=== PATIENT | female | born 1970 | race Caucasian/White ===

== ENCOUNTER 2025-06-25 07:47 | Inpatient (IN) | payer BC ==
[2025-06-25] VITALS (15 sets, daily range): BP systolic 87–119; BP diastolic 42–76; PULSE 58–105; RESP 14–19; TEMP 98.7; O2SAT 92–100
[~2025-06-25] VITALS: Ht 170.2 cm; Wt 54.5 kg
[2025-06-25 08:40] LABS: CREATININE 0.79 MG/DL (0.40-0.90); TOTAL CARBON DIOXIDE 25.3 MMOL/L (24-32); eCRCL 68 ML/MIN; eGFR 75 ML/MIN
[2025-06-25 09:06] LABS: URINE HCG NEGATIVE (NEG)
[2025-06-25 09:07] LABS: MEAN PLATELET VOLUME 8.6 FL (7.4-10.4); RED CELL DISTRIBUTION WIDTH 14.4 % (11.5-14.5)
[2025-06-25 09:12] LABS: LEUKOCYTE ESTERASE ,URINE NEGATIVE (Neg); NITRITES, URINE NEGATIVE (Neg); OCCULT BLOOD,URINE TRACE-INTACT (Neg)
[2025-06-25 09:21] LABS: UA COLLECTION TYPE CLN CATCH MIDSTREAM
[2025-06-25 09:22] LABS: MUCUS STRANDS NONE SEEN /LPF (Neg); SQUAMOUS EPITHELIAL CELL,UR NONE SEEN /LPF (FEW)
--- NOTE | 2025-06-25 09:23 | ELECTROCARDIOGRAPH REPORT ---
[facility] Test Date: 2025-06-25 Test Time: 09:20:45 Pat Name: BEA VALDIVIA Department: [facility] Patient ID: [facility]-[id number] Room: [place] [address] Gender: F Preforms Laminator: : 1970 Requested By: HA HUNG Order Number: [id number] Reading MD: Dr. Bulmaro Brandt Measurements Intervals [place] Rate: 79 P: 89 AL: 126 QRS: 87 QRSD: 59 T: -87 QT: 341 QTc: 391 Interpretive Statements Sinus rhythm Anteroseptal infarct, old Borderline repolarization abnormality Electronically Signed On 06-25-2025 18:17:[address] Bulmaro Brandt Please click the below link to view image of tracing.
--- NOTE | 2025-06-25 09:32 | RADIOLOGY REPORT ---
CLINICAL INFORMATION: Sepsis. TECHNIQUE: Single AP portable chest radiograph was obtained. COMPARISON: None FINDINGS: Lungs: No focal consolidation. Hyperaeration of the lungs, may be seen with emphysematous changes in the appropriate clinical setting. Cardiac: Heart size is within normal limits. Pulmonary vasculature: Unremarkable. Mediastinum/clari: Unremarkable. Bones: No acute osseous abnormality identified. Other: No other significant findings. IMPRESSION: 1. No evidence of acute disease in the chest. 2. Hyperaeration of the lungs, may be seen with emphysematous changes in the appropriate clinical setting. Correlate with clinical findings.
[2025-06-25] MEDS: normal saline 1000ML IV soln IVB ONE (09:46)
[2025-06-25] MEDS: ondansetron/PF 4mg/2ml inj IV ONE (09:47)
[2025-06-25] MEDS ORDERED: iohexol 300mg/ml 100ml inj. ONE (09:48)
[2025-06-25] MEDS: morphine 4 MG/ML inj SYRINge IV ONE ×2 (09:54→11:20)
--- NOTE | 2025-06-25 10:18 | Physician Documentation ---
History of Present Illness Chief Complaint: Abdominal Pain Stated Complaint: ABD PAIN Time Seen by MD: 09:08 OK to notify your PCP?: Yes Source: patient Mode of Arrival: POV Exam Limitations: no limitations HPI 54 y/o female with c/o RLQ abdominal pain started yesterday morning. Pain described as "pinching" in character and 8/10 in severity. States initially she thought it was "gas pains" but states since pain did not get better she came to ER. Has never had anything like this before. Took two Advil yesterday with some relief. +nausea without vomiting. H/o cholecystectomy. No urinary symptoms, no blood in urine, diarrhea, constipation. Medication Reconciliation Allergies: Coded Allergies: clindamycin (Verified Allergy, Unknown, 06/25/25) latex (Verified Allergy, Unknown, 06/25/25) Review of Systems All Other Systems at this time: Reviewed and Negative Physical Exam Vital Signs: Temperature: 98.4, Source: Temporal, Heart Rate: 84, Respiratory Rate: 16, BP: 104/66, Pulse Oximetry: 97, Weight: 54.550 Oxygen Flow Rate: 0 Physical Exam GENERAL: Alert, Mild distress due to abdominal pain. HEENT: NCAT, EOMI, PERRL, normal oropharynx, moist oral mucosa. NECK: Supple, trachea midline. CARDIAC: Regular rate and rhythm, no murmurs, rubs, or gallops. Equal distal pulses. No lower extremity edema, cap refill less than 2 seconds. RESPIRATORY: Equal breath sounds, clear to auscultation bilaterally, no respiratory distress. GASTROINTESTINAL: Non distended, soft, +RLQ ttp, No guarding or rebound. MUSCULOSKELETAL: Normal range of motion, nontender, no swelling. NEUROLOGICAL: Awake, alert, and oriented x 3. SKIN: Warm/dry, no pallor, no rash. PSYCH: Alert and appropriate. Affect congruent with mood. Speech is clear. Good eye contact. Progress Progress Note SPOKE TO DR. WELLS WHO IS AWARE OF THE PATIENT AND STATES HE PLANS TO TAKE TO OR TODAY. LAST PO INTAKE WAS 6AM THIS AM REPORTED TO BE APPROXIMATELY 4-6OUNCES OF WATER. HOSPITALIST PAGED FOR ADMISSION Results/Orders Reviewed/noted all lab results: Yes Results/Orders Orders - HA HUNG Ct Abdomen Pelvis (06/25/25 09:13) Culture Blood (06/25/25 09:14) Chest,Single View (06/25/25 09:14) Procalcitonin (06/25/25 09:14) Lacticsepsis (06/25/25 09:14) Completed Orders - HA HUNG Normal Saline 1000ml (0.9% Sodium Chlori (06/25/25 09:15) Morphine 2mg/Ml Inj. (Morphine Inj.) (06/25/25 09:15) Ondansetron Inj. (Zofran 4mg/2ml Vial) (06/25/25 09:15) Electrocardiogram (06/25/25 09:14) Chest,Single View (06/25/25 09:14) Morphine 4mg/Ml Inj. (Morphine Inj.) (06/25/25 09:20) Iohexol 300mg/Ml 100ml Inj. (Omnipaque-3 (06/25/25 09:48) Medications Received in ER Medications (Trade) Dose Ordered Sig/Jaycob Route PRN Reason Start Time Stop Time Status Last Admin Dose Admin (0.9% sodium chloride (NS) 1000ml IV soln) 1,000 ml ONCE ONCE IVB 06/25/25 09:15 06/25/25 09:16 DC 06/25/25 09:46 1,000 ML (Zofran 4mg/2ml vial) 4 mg ONCE ONCE IV 06/25/25 09:15 06/25/25 09:16 DC 06/25/25 09:47 4 MG (morphine inj.) 2 mg ONCE ONCE IV 06/25/25 09:20 06/25/25 09:21 DC 06/25/25 09:54 2 MG Vital Signs 06/25/25 06/25/25 06/25/25 06/25/25 07:52 08:15 09:00 09:30 Temp 98.4 Pulse 95 79 85 84 Resp 16 14 16 16 B/P (MAP) 91/48 92/59 (70) 110/64 (79) 104/66 (79) Pulse Ox 100 99 100 97 O2 Flow Rate 0 0 0 0 06/25/25 09:54 Resp 16 Laboratory Tests Test 06/25/25 08:08 06/25/25 08:31 White Blood Count 18.6 H Red Blood Count 4.20 Hemoglobin 12.7 Hematocrit 37.5 Mean Corpuscular Volume 89.2 Mean Corpuscular Hemoglobin 30.2 Mean Corpuscular Hemoglobin Concent 33.9 Red Cell Distribution Width 14.4 Platelet Count 282 Mean Platelet Volume 8.6 Neutrophils (%) (Auto) 92.6 H Lymphocytes (%) (Auto) 4.3 L Monocytes (%) (Auto) 3.0 Eosinophils (%) (Auto) 0 Basophils (%) (Auto) 0.1 Neutrophils # (Auto) 17.2 H Lymphocytes # (Auto) 0.8 L Monocytes # (Auto) 0.6 Eosinophils # (Auto) 0.0 Basophils # (Auto) 0.0 CBC Comment Sodium Level 140 Potassium Level 3.9 Chloride Level 104 Carbon Dioxide Level 25.3 Anion Gap 11 Blood Urea Nitrogen 12 Creatinine 0.79 Estimated GFR/1.73 m2 75 BUN/Creatinine Ratio 15.2 Glucose Level 169 H Calcium Level 8.9 Total Bilirubin 0.6 Aspartate Amino Transf (AST/SGOT) 18 Alanine Aminotransferase (ALT/SGPT) 19 Alkaline Phosphatase 57 Total Protein 7.3 Albumin 3.6 Globulin 3.7 Albumin/Globulin Ratio 1.0 L Lipase 25 Chemistry Comments Urine Specimen Description Cln catch midstream Urine Color Yellow Urine Clarity Clear Urine pH 6.5 Urine Specific [place] 1.020 Urine Protein Negative Urine Glucose (UA) Negative Urine Ketones 15 H Urine Occult Blood Trace-intact Urine Nitrite Negative Urine Bilirubin Negative Urine Urobilinogen 0.2 Urine Leukocyte Esterase Negative Urine RBC 3-10 Urine WBC 0-4 Urine Squamous Epithelial Cells None seen Urine Bacteria Few Urine Mucus None seen Urine Culture Indicated Not ind Volume Urine Centrifuged 10 ml Urine HCG, Qualitative Negative Urine Comment Medical Decision Making Findings History: RLQ ABDOMINAL PAIN Comparison Study: None Technique: Multidetector spiral CT of the abdomen was performed from lung bases to pubic symphysis. Axial imaging was performed with intravenous contrast following the uneventful administration of 100 ml Omnipaque 300. Coronal and sagittal multiplanar reformats were obtained from the axial data set by the technologist. Radiation Dose : 1. Abdomen/Pelvis: CTDIvol 8.3 mGy, DLP 42.9 mGy*cm. Findings: Lung Bases: Lung bases are clear. Visualized portions of the heart and pericardium are unremarkable. Liver: The liver is normal in size. No focal lesions. Gallbladder and Biliary Tree: The gallbladder is surgically absent. No intrahepatic or extrahepatic biliary ductal dilatation. Spleen: Unremarkable Pancreas: The pancreas enhances normally and there are no focal lesions. The main pancreatic duct is not dilated Adrenal Glands: Unremarkable Kidneys: Kidneys enhance symmetrically. No calculi or hydronephrosis. GI tract: The stomach is grossly normal in appearance. No evidence of small bowel wall thickening or abnormal dilatation to suggest bowel obstruction. The c olon is unremarkable. The appendix is dilated measuring 1.3 cm and fluid-filled with periappendiceal fat stranding and mesenteric edema. Peritoneum/mesentery/retroperitoneum. No evidence of free intraperitoneal air. No ascites. No evidence of suspicious lymphadenopathy. Abdominal Wall: Unremarkable. Vasculature: Abdominal aorta and main branches are unremarkable. Normal vascular enhancement. Urinary Bladder: Grossly unremarkable for degree of distention. Pelvic Organs: Unremarkable Musculoskeletal: No aggressive focal bony lesions, acute fractures or dislocation. IMPRESSION: 1. Acute appendicitis. No fluid collection or perforation. 2. Cholecystectomy. Differential Dx:Considerations: Include: AAA, Aortic dissection, Appendicitis, Bowel obstruction, Constipation, Diverticular disease, Gastritis/PUD, Gastroenteritis, GI hemorrhage, Hernia, Hepatitis, Inflammatory BD, Ischemic bowel, Ovarian cyst/torsion, Pancreatitis, PID, Urinary obstruction, Urinary tract infection, Urolithiasis; Unlikely: Cholangitis, Cholelithasis, Esophageal rupture, Esophagitis, Trauma, intraabdominal Departure Time of Disposition: 11:54 Admitted to Inpatient Unit: to hospitalist, to surgeon Impression: Primary Impression: Acute appendicitis Qualified Codes: K35.30 - Acute appendicitis with localized peritonitis, without perforation or gangrene Additional Impression: Abdominal pain Qualified Codes: R10.31 - Right lower quadrant pain Condition: Fair Referrals: NO PRIMARY CARE PROVIDER (PCP) Education Educated: Patient, Family Educated regarding: diagnosis, treatment, need for follow up Signature Scribe Signature: x Attestation: HA Avery Jun 25, 2025 10:18
--- NOTE | 2025-06-25 11:32 | RADIOLOGY REPORT ---
Exam: CT CT ABDOMEN PELVIS W/ IV CONTRAST History: RLQ ABDOMINAL PAIN Comparison Study: None Technique: Multidetector spiral CT of the abdomen was performed from lung bases to pubic symphysis. Axial imaging was performed with intravenous contrast following the uneventful administration of 100 ml Omnipaque 300. Coronal and sagittal multiplanar reformats were obtained from the axial data set by the technologist. Radiation Dose : 1. Abdomen/Pelvis: CTDIvol 8.3 mGy, DLP 42.9 mGy*cm. Findings: Lung Bases: Lung bases are clear. Visualized portions of the heart and pericardium are unremarkable. Liver: The liver is normal in size. No focal lesions. Gallbladder and Biliary Tree: The gallbladder is surgically absent. No intrahepatic or extrahepatic biliary ductal dilatation. Spleen: Unremarkable Pancreas: The pancreas enhances normally and there are no focal lesions. The main pancreatic duct is not dilated Adrenal Glands: Unremarkable Kidneys: Kidneys enhance symmetrically. No calculi or hydronephrosis. GI tract: The stomach is grossly normal in appearance. No evidence of small bowel wall thickening or abnormal dilatation to suggest bowel obstruction. The colon is unremarkable. The appendix is dilated measuring 1.3 cm and fluid-filled with periappendiceal fat stranding and mesenteric edema. Peritoneum/mesentery/retroperitoneum. No evidence of free intraperitoneal air. No ascites. No evidence of suspicious lymphadenopathy. Abdominal Wall: Unremarkable. Vasculature: Abdominal aorta and main branches are unremarkable. Normal vascular enhancement. Urinary Bladder: Grossly unremarkable for degree of distention. Pelvic Organs: Unremarkable Musculoskeletal: No aggressive focal bony lesions, acute fractures or dislocation. IMPRESSION: 1. Acute appendicitis. No fluid collection or perforation. 2. Cholecystectomy.
[2025-06-25] MEDS ORDERED: magnesium sulf-water 2g/50mL 50 ML IV PRN (12:15)
[2025-06-25] MEDS ORDERED: HYDROcodone/acetaminophen 10/325mg tab PO PRN ×2 (12:15→15:55)
[2025-06-25] MEDS ORDERED: potassium Cl 20 mEq SR tablet PO PRN ×2 (12:15)
[2025-06-25] MEDS ORDERED: HYDROcodone/acetaminophen 5mg/325mg tablet PO PRN ×2 (12:15→15:55)
[2025-06-25] MEDS ORDERED: magnesium hydroxide 30ml (MOM) UD suspension PO PRN (12:15)
[2025-06-25] MEDS ORDERED: potassium Cl 40MEQ/1/2NS 520ml 520 ML IV PRN (12:15)
[2025-06-25] MEDS ORDERED: mag hydrox/Alum hydrox/simeth 30ml oral suspension PO PRN (12:15)
[2025-06-25] MEDS ORDERED: ondansetron/PF 4mg/2ml inj IV PRN ×3 (12:15→15:55)
[2025-06-25] MEDS ORDERED: magnesium sulf-water 4G/100mL 100 ML IV PRN (12:15)
[2025-06-25] MEDS ORDERED: ringers solution, lacted 1,000 ML IV SCH (12:30)
[2025-06-25] MEDS ORDERED: HYDROmorphone/PF 0.2 MG/ML SYRINGE IV PRN ×2 (12:30)
[2025-06-25] MEDS ORDERED: enalaprilat 1.25mg/ml 2ml vial IV PRN (12:30)
[2025-06-25] MEDS ORDERED: fentaNYL/PF 50MCG/1 ML 2ML syringe IV PRN ×2 (12:30)
[2025-06-25] MEDS ORDERED: labetalol 20mg/4ml (5mg/ml) syringe IV PRN (12:30)
[2025-06-25] MEDS ORDERED: morphine 4 MG/ML inj SYRINge IV PRN ×4 (12:30→16:27)
--- NOTE | 2025-06-25 12:33 | CONSULTATION REPORT ---
History of Present Illness Providers to CC CC: WOLF WELLS MD ~ Reason for Admit\Admit Dx: Acute appendicitis Refering MD: Keena Becker PA-C History of Present Illness Otherwise healthy 54-year-old woman presents to the emergency room with a 24-30 hours of abdominal pain, distention, nausea. Pain progressively increased in severity and now tends to be isolated to the right lower quadrant. CT scan shows acute non perforated appendicitis with the appendicoliths. Patient continues to have fairly significant right lower quadrant abdominal pain. She states she has a history of similar episodes over the past 10 years, however, never had diagnosis of appendicitis. Reports only cholecystectomy. Allergies: Coded Allergies: clindamycin (Verified Allergy, Unknown, 06/25/25) latex (Verified Allergy, Unknown, 06/25/25) Past Medical History Medical History Comment None Past Surgical History Surgical History Comment Laparoscopic cholecystectomy Past Family History Family History Comment Noncontributory Past Social History Social History Comment Not applicable Health Maintenance Health Maintenance Not applicable Physical Exam Last Vital Signs Recorded: RN Vital Signs have been reviewed: Yes, Temperature: 98.4, Source: Temporal, Heart Rate: 85, Respiratory Rate: 14, BP: 100/56, Pulse Oximetry: 98, Weight: 54.550 General Appearance: alert, WD/WN, thin EENT: PERRL/EOMI; No: scleral icterus (R), scleral icterus (L) Neck: normal inspection, supple Respiratory: lungs clear Chest: no accessory muscle use Cardiovascular: regular rate, rhythm Gastrointestinal Abdomen is softly distended Significant right lower quadrant and right suprapubic tenderness to palpation with tenderness to percussion Rovsing sign negative No palpable masses Partially reducible umbilical hernia Rectal: deferred Back: normal inspection, no CVA tenderness Extremities: normal range of motion, non-tender, no edema Neurologic: oriented x4 Psychiatric: normal mood/affect; No: anxiety Skin: normal color Lymphatic: no adenopathy Review of Systems ROS ROS Comments: Reviewed and negative with the exception of those found in the history of present illness Results Diagram Lab Result Diagram: 06/25/25 0808 06/25/25 08 Assessment/Plan Problems/Diagnosis: (1) Umbilical hernia (2) Acute appendicitis Additional Plan The risks, benefits, and alternatives to a laparoscopic possible open appendectomy with a umbilical hernia repair were discussed with the patient. Risks include, but are not limited to, bleeding, infection, injury to intra- abdominal structures, leakage from the intestine and the need for additional surgery. Patient verbalized understanding and wishes to proceed with surgery. We will do so ALIYA Problem Qualifiers (1) Acute appendicitis: Qualified Codes: K35.30 - Acute appendicitis with localized peritonitis, without perforation or gangrene WOLF WELLS MD Jun 25, 2025 12:33
--- NOTE | 2025-06-25 12:46 | HISTORY AND PHYSICAL ---
History & Physical Providers to ~ History of Present Illness Reason for Admit\Complaint: Acute appendicitis History of Present Illness Cassidy Humphries is a 54-year-old female with a past medical history of prediabetes who presented with chief complaints of acute onset severe right lower quadrant and left lower quadrant abdominal pain with associated symptoms of nausea x 2 days. Patient denies prior IL/CAD, CVA, cardiac arrhythmia, DVT/PE, or GIB. Patient denies chest pain, palpitations, shortness of breath, abdominal pain, v/d, fever, chills. Patient is to be admitted for further workups and treatment. Allergies: Coded Allergies: clindamycin (Verified Allergy, Unknown, 06/25/25) latex (Verified Allergy, Unknown, 06/25/25) Past Medical History Past Medical History Prediabetes Past Surgical History Surgical History Comment Cholecystectomy Past Social History Social History Comment Alcohol: 1 glass of wine daily Tobacco: Denies, never Illicit drug use: Denies Living situation: Lives at home with spouse ROS ROS Other than positives in HPI, all 14 review of systems are negative Exam Vitals: Vital Signs Date Time Temp Pulse Resp B/P (MAP) Pulse Ox O2 Delivery O2 Flow Rate FiO2 06/25/25 11:36 85 100/56 (71) 98 0 06/25/25 11:20 14 06/25/25 07:52 98.4 General: Generalized weakness, A&Ox 3, NAD HEENT: Normocephalic, PERRLA Neck: Supple, trachea midline, no JVD Chest: Clear to auscultation bilaterally Cardiovascular: RRR, S1&S2 Abdomen: Positive McBurney's point tenderness, positive Rovsing's sign, positive Obturator sign, negative rebound tenderness Extremities: No cyanosis/clubbing/or edema Central Nervous System: CN II-XII intact, no focal deficits Musculoskeletal: No paraspinal muscle tenderness, no muscle spasm Skin: Warm and intact Diagnostic Data Last Recorded Lab Results: 06/25/25 0808 06/25/25 0808 Additional Plan Assessment & Plan Acute appendicitis, complicated Umbilical hernia s/p appendectomy and umbilical hernia repair (06/25/25) -CT shows acute appendicitis, vss, wbc 18, lactic acid 1.4, procal neg, Dr. Ferguson consulted in ED -NPO, Zosyn, IVF, OR today with findings of 3 cm fascial defect on the superior margin of the umbilicus with the herniated and incarcerated omentum and preperitoneal fat & gangrenous appendicitis with no clear evidence of rupture or abscess formation Prediabetes s/p cholecystectomy DVT/VTE Prophylaxis: heparin Code Status: Full Code I spent a total of 35 minutes discussing Advanced Care Planning measures with the patient. Advance care planning: Discussed with patient the importance of advance care planning in case of emergent situation. We discussed various resuscitative measures/ ACP with the patient at the time of admission. Patient voiced understanding and patient has decided on a full code status. Date of Service: Jun 25, 2025 Billing Provider: JONA COPPOLA Common Visit Codes: 71268-[id number] INP/OBS CARE (HIGH) Secondary Visit Codes: 41451-[id number] CARE PLAN 30 MINUTES JONA COPPOLA Jun 25, 2025 12:46
[2025-06-25] MEDS: ringers solution, lacted 1,000 ML IV SCH (12:52)
[2025-06-25] MEDS: ringers solution, lacted 1,000 ML IV ONE (12:53)
[2025-06-25] MEDS: piperacillin/tazo 3.375gm/50ml 50 ML IV SCH (12:53)
[2025-06-25] MEDS ORDERED: BUPIVAcaine 2.5mg/ml inj 50ml vial (contains preservative) ONE (14:16)
[2025-06-25] MEDS ORDERED: LIDOcaine 1% 30ml preserv. free vial ONE (14:16)
[2025-06-25] MEDS ORDERED: fentaNYL/PF 50MCG/1 ML 2ML syringe ONE (14:27)
[2025-06-25] MEDS ORDERED: midazolam 1 mg/ML 2ml injection ONE (14:27)
[2025-06-25] MEDS ORDERED: rocuronium 10mg/ml inj IV ONE (14:28)
[2025-06-25] MEDS: BUPIVAcaine 0.25% w/Epi /PF 30ml vial IJ ONE (14:51)
[2025-06-25] MEDS: LIDOcaine 1% 30ml preserv. free vial IJ ONE (14:51)
[2025-06-25] MEDS ORDERED: dexamethasone sod phosphate 4mg/ml inj. ONE (14:52)
[2025-06-25] MEDS ORDERED: propofol 10mg/ml 20ml vial IV ONE (14:52)
[2025-06-25] MEDS ORDERED: glycopyrrolate 0.2mg/ml inj ONE (14:52)
[2025-06-25] MEDS ORDERED: morphine 4 MG/ML inj SYRINge ONE (15:27)
[2025-06-25] MEDS ORDERED: ondansetron/PF 4mg/2ml inj ONE (15:27)
[2025-06-25] MEDS ORDERED: acetaminophen 1,000mg/100ml IV 100 ML IV ONE (15:29)
[2025-06-25] MEDS ORDERED: PCA WASTE DOCUMENTATION 1 MG ML MC SCH (15:55)
[2025-06-25] MEDS ORDERED: piperacillin/tazo 3.375gm/50ml 50 ML IV SCH (16:00)
--- NOTE | 2025-06-25 16:01 | OPERATIVE REPORT ---
Operative Report Providers to CC CC: MADI WELLS MD ~ Date of Procedure: Jun 25, 2025 Pre-Operative Diagnosis: Acute appendicitis, umbilical hernia Post-Operative Diagnosis Gangrenous appendicitis 3 cm umbilical hernia Procedure Performed 3 cm umbilical hernia repair Laparoscopic appendectomy Surgeon: Madi Wells MD FACS Steam Engineer None Anesthesiologist: Kevan Reese Type of Anesthesia: General Findings: 3 cm fascial defect on the superior margin of the umbilicus with the herniated and incarcerated omentum and preperitoneal fat Gangrenous appendicitis with no clear evidence of rupture or abscess formation Wound class III Complications None Prosthetics\Implants used: None Estimated Blood Loss: Less than 5 cc Specimen Removed: Appendix Umbilical hernia sac excised and discarded Description of Procedure: Patient was brought to the operating room and identified by the nursing staff and the attending physician. Patient was placed supine and general anesthesia was induced. Preoperative antibiotics had already been given. Abdomen was prepped and draped in the standard sterile fashion. Over a visible umbilical hernia, a curvilinear incision was made along the superior margin of the umbilicus and deepened down through subcutaneous tissues. Almost immediately, a moderate-sized hernia sac was encountered. This was densely adherent to the underside of the dermis hand was immediately opened. It was found to contain both preperitoneal and omental fat. This was incarcerated. Contents and hernia sac were mobilized away from the soft tissue and subcutaneous tissues down to the level of the fascia excess hernia sac and preperitoneal fat was excised and discarded. Fascial edges were freshened, revealing a 3 cm fascial defect. This was used for Bear port after stay sutures were placed. Abdomen was insufflated without incident. Laparoscope was inserted and the abdomen was surveyed. There was murky fluid in the right lower quadrant but the appendix was obscured by omentum. 5 mm laparoscopic ports were placed in the suprapubic and left lower quadrant under laparoscopic visualization. Patient was placed in Trendelenburg position with the right side up. Omentum was swept away from the terminal ileum and cecum, revealing a distended and gangrenous appearing appendix. It was purple to black in color but there was no clear evidence of perforation. Murky fluid was suctioned from the periappendiceal space as well as the pelvis. Again, this did not appear to be purulent in nature. There was some localized peritonitis. A window was created through the appendiceal mesentery and the appendix was divided through its base with a laparoscopic linear cutting stapler. The base appeared normal. The mesentery to the appendix was then divided with a subsequent vascular load with a linear cutting stapler. Appendix was then placed in a laparoscopic retrieval bag. Hemostasis along the staple lines was confirmed. Area was irrigated and suctioned. Instruments were removed and the umbilical port was removed with the specimen in its retrieval bag. Specimen was passed off the field. 3 cm umbilical hernia defect was closed in layers with a combination of 0 Ethibond and 0 Vicryl suture. Skin was closed at all sites with 4-0 Monocryl sutures in a subcuticular fashion and sterile dressings applied. Patient was awakened and taken to the postanesthesia care unit to be cared for by the most amazing nurse Trinity. Counts repoted as correct: Yes MADI WELLS MD Jun 25, 2025 16:01
[2025-06-25] MEDS: K and/or MAG REPLACEMENT MC SCH (20:00)
[2025-06-25] MEDS: docusate sod 100mg capsule PO SCH (20:28)
[2025-06-25] MEDS: normal saline 500ml IV soln 500 ML IV SCH (22:48)
[2025-06-26] VITALS (8 sets, daily range): BP systolic 88–119; BP diastolic 43–69; PULSE 60–83; RESP 16–20; TEMP 97.5–99; O2SAT 96–99
[2025-06-26] MEDS: midodrine 5mg tablet PO PRN (03:17)
[2025-06-26] MEDS: normal saline 500ml IV soln 500 ML IV ONE (03:30)
[2025-06-26] MEDS: piperacillin/tazo 3.375gm/50ml 50 ML IV SCH (04:00)
[2025-06-26 06:16] LABS: CREATININE 0.79 MG/DL (0.40-0.90); TOTAL CARBON DIOXIDE 25.4 MMOL/L (24-32); eCRCL 68 ML/MIN; eGFR 75 ML/MIN
[2025-06-26 06:19] LABS: MEAN PLATELET VOLUME 9.0 FL (7.4-10.4); RED CELL DISTRIBUTION WIDTH 14.4 % (11.5-14.5)
[2025-06-26] MEDS: midodrine 5mg tablet PO SCH (08:31)
[2025-06-26] MEDS: enoxaparin 40mg/0.4ml syringe SQ SCH (08:32)
--- NOTE | 2025-06-26 11:24 | PROGRESS NOTE ---
Daily Progress Note Providers to CC ~ Antibiotic Timeout Antibiotic Ordered?: Yes Subjective Note No acute events overnight. Patient examined at bedside. No new complaints, not in acute distress. Patient denies chest pain, sob, palpitations, abdominal pain, n/v/d. s/p laparoscopic appendectomy and umbilical hernia repair. Vss, labs unremarkable. Objective Vital Signs Date Time Temp Pulse Resp B/P (MAP) Pulse Ox O2 Delivery O2 Flow Rate FiO2 06/26/25 10:41 98.3 60 18 105/51 (69) 99 Room Air 06/26/25 05:38 0 21 Result Diagram: 06/26/2552206/26/25522 Physical Exam General: Generalized weakness, A&Ox 3, NAD HEENT: Normocephalic, PERRLA Neck: Supple, trachea midline, no JVD Chest: Clear to auscultation bilaterally Cardiovascular: RRR, S1&S2 GI: Soft and nontender Extremities: No cyanosis/clubbing/or edema DIRECTOR OF AUTOMATION: CN II-XII intact, no focal deficits Musculoskeletal: No paraspinal muscle tenderness, no muscle spasm Skin: Laparoscopic incisions in the left quadrant abdomen and umbilical w/o s/s of infection Problem\Assessment\Plan Assessment & Plan Acute appendicitis, complicated Umbilical hernia s/p appendectomy and umbilical hernia repair (06/25/25) -CT shows acute appendicitis, vss, wbc 18, lactic acid 1.4, procal neg, Dr. Ferguson consulted in ED -NPO, Zosyn, IVF, OR today with findings of 3 cm fascial defect on the superior margin of the umbilicus with the herniated and incarcerated omentum and preperitoneal fat & gangrenous appendicitis with no clear evidence of rupture or abscess formation 06/26: continue abx Prediabetes s/p cholecystectomy DVT/VTE Prophylaxis: heparin Code Status: Full Code Date of Service: Jun 26, 2025 Billing Provider: JONA COPPOLA Common Visit Codes: [id number] INP/OBS CARE(HIGH) JONA COPPOLA Jun 26, 2025 11:24
--- NOTE | 2025-06-26 20:45 | PROGRESS NOTE ---
Progress Note Dictate Providers to CC ~ Progress Note: Subsequent surgical care on a 54-year-old woman who is postoperative day 1, status post laparoscopic appendectomy for gangrenous appendicitis Persistent leukocytosis Passing some flatus at this point No nausea or vomiting Afebrile Continue IV antibiotics Okay to advance diet as tolerated Anticipate discharge in the next 24-48 hours Antibiotic Ordered?: Yes Objective Vitals Vital Signs Date Time Temp Pulse Resp B/P (MAP) Pulse Ox O2 Delivery O2 Flow Rate FiO2 06/26/25 10:41 98.3 60 18 105/51 (69) 99 Room Air 06/26/25 05:38 0 21 Lab Results: 06/26/25 0523 06/26/25 0523 Problem\Assessment\Plan Problems/Diagnosis: (1) Umbilical hernia (2) Acute appendicitis Problem Qualifiers (1) Acute appendicitis: Qualified Codes: K35.30 - Acute appendicitis with localized peritonitis, without perforation or gangrene WOLF WELLS MD Jun 26, 2025 20:44
[2025-06-27 04:52] LABS: MEAN PLATELET VOLUME 8.2 FL (7.4-10.4); RED CELL DISTRIBUTION WIDTH 14.6 % (11.5-14.5)
[2025-06-27 05:05] LABS: CREATININE 0.88 MG/DL (0.40-0.90); TOTAL CARBON DIOXIDE 26.2 MMOL/L (24-32); eCRCL 61 ML/MIN; eGFR 66 ML/MIN
[2025-06-27 06:00] VITALS: BP 101/56; PULSE 89; RESP 16; TEMP 99.5; O2SAT 98
[2025-06-27 08:00] VITALS: RESP 16; O2SAT 98
[2025-06-27 10:00] VITALS: BP 104/52; PULSE 87; RESP 16; TEMP 98.9; O2SAT 98
--- NOTE | 2025-06-27 11:14 | PATHOLOGY REPORT ---
[facility] [address] [place] [address] SURGICAL PATHOLOGY REPORT CaseNumber: [id number] Surgeon:Madi Ferguson M.D. CLINICAL INFORMATION CLINICAL INFORMATION: Acute appendicits, abd pain. DIAGNOSIS DIAGNOSIS: APPENDIX, ROBOTIC ASSISTED LAPAROSCOPIC APPENDEC - PROMINENT ACUTE APPENDICITIS - GROSS FEATURES CONSISTENT WITH PERFORATION - NO DYSPLASTIC OR NEOPLASTIC FEATURES MICROSCOPIC DESCRIPTION MICROSCOPIC DESCRIPTION: Performed. GROSS DESCRIPTION GROSS DESCRIPTION: Received in a container of formalin labeled with the patient's name, number, and "Appendix" is a perforated uniform caliber vermiform appendix which measures 8 cm long by 0.9 cm in diameter. The serosa is congested with areas of indurated fibrinopurulent exudate and 2.5 cm from the distal a through and through perforation is identified. There is approximately 1.5 cm of attached periappendiceal fat. Sectioning reveals a dilated lumen which contains stool but no fecalith. Sections are submitted as follows:A1) Area of perforationA2)Website Developer The time at which the specimen was removed was 1520. The time at which the specimen was placed in formalin was 1525. Electronically signed by: Modesto Chowdary M.D. 06/27/2025 10:49:00 AM
--- NOTE | 2025-06-27 15:55 | PROGRESS NOTE ---
Daily Progress Note Providers to CC Feels better today, no complaint, pain well controlled, patient discharged by Dr. Ferguson ~ Central Line/PICC still needed: No Tomlinson-Non Protocol Tomlinson Indications Met/Not Met: F/C Indications Not Met Antibiotic Timeout Antibiotic Ordered?: No MRSA Education MRSA Education Provided to pt: No Subjective As above Objective Vital Signs Date Time Temp Pulse Resp B/P (MAP) Pulse Ox O2 Delivery O2 Flow Rate FiO2 06/27/25 10:00 98.9 87 16 104/52 (69) 98 Room Air 06/26/25 05:38 0 21 Vital signs, stable ,afebrile. Pulse Oximetry reflects adequate oxygenation. General: well developed, well nourished. Awake , alert, and oriented x4, resting comfortably in the bed, in no acute distress . Skin: Warm, dry, no pallor, no rash or petechiae. HEENT: Atraumatic, normocephalic, EOMI, anicteric sclera B; pink conjunctiva; PERRLA, normal oropharynx, moist oral and nasal mucosa. Tympanic membrane , nose , throat clear. Neck: Trachea midline. Supple, full range of motion, no JVD, bruit , hepatojugular reflex , lymphadenopathy or masses, or other lesions Cardiac: Regular rhythm, regular rate no murmurs, rubs, or gallops. Normal S1 and S2, no S3 noticed. PMI is normal. Respiratory: Equal breath sounds bilaterally, no tachypnea; lungs clear to auscultation bilaterally, no wheezing ,rub or rales, or crackles. Chest wall is symmetric and without deformity. No signs of trauma. Chest wall is nontender. No signs of respiratory distress. Resonance is normal upon percussion bilaterally. Gastrointestinal: Abdomen symmetric, non-distended, soft, non-tender, normal bowel sounds x4 quadrant, normoactive, no hepatosplenomegaly , no masses , no bruit, no flank pain bilaterally. No voluntary guarding, rebound, or rigidity. No tenderness to percussion. No pulsatile masses. Equal femoral pulses. No Javed's sign or McBurney point tenderness. Dressing clean dry intact Back; no CVA tenderness bilaterally, no deformities. Neck and back are without deformity as well. No tenderness noted on palpation of the spinous processes. Spinous processes are midline. Cervical, thoracic, and lumbar paraspinal muscles are not tender and are without spasm. Musculoskeletal: Extremities, normal range of motion, non-tender, muscle strength 5/5 x 4. Negative Homans signs bilaterally on lower extremity. Distal pulses full symmetrical, no clubbing, cyanosis , edema. Neurological: Speech is clear, alert, and oriented x 4. No motor or sensory deficit, deep tendon reflexes normal, cerebellar intact. Cranial nerves II-XII intact. Psych: Alert and or appropriate, normal affect. Vascular: Good distal pulses, which are equal x4; capillary refill less than 2 seconds. Lymphatic, no lymphadenopathy. Result Diagram: 06/27/2543606/27/25436 Problem\Assessment\Plan Assessment & Plan Acute appendicitis, complicated Umbilical hernia s/p appendectomy and umbilical hernia repair (06/25/25) -CT shows acute appendicitis, vss, wbc 18, lactic acid 1.4, procal neg, Dr. Ferguson consulted in ED -NPO, Zosyn, IVF, OR today with findings of 3 cm fascial defect on the superior margin of the umbilicus with the herniated and incarcerated omentum and preperitoneal fat & gangrenous appendicitis with no clear evidence of rupture or abscess formation 06/26: continue abx Prediabetes s/p cholecystectomy DVT/VTE Prophylaxis: heparin Code Status: Full Code Date of Service: Jun 27, 2025 Billing Provider: PRATIBHA FLORES MD Common Visit Codes: [id number] INP/OBS CARE(MOD) PRATIBHA FLORES MD Jun 27, 2025 15:55
[2025-06-27] MEDS ORDERED: AMOX-117 PO (18:00)
--- NOTE | 2025-06-27 18:04 | DISCHARGE SUMMARY ---
Discharge Summary Providers to CC CC: MADI WELLS MD ~ Discharge Summary Admission Diagnosis: Acute appendicitis, umbilical hernia Hospital Course DATE OF ADMISSION: June 25, 2025 DATE OF DISCHARGE: June 27, 2025 Discharge Diagnosis\Comment: Acute gangrenous appendicitis Umbilical hernia Operations\Procedures: Umbilical hernia repair Laparoscopic appendectomy Consultants: Madi Wells MD [facility] Hospitalist service Complications: None Condition on DC: Stable New Medications: Amox Tr/Potassium Clavulanate (Augmentin 875-125 Tablet) 1 Each Tablet 1 TAB PO Q12H for 3 Days, #6 TAB Discharge Summary: Patient was admitted following operative intervention for acute appendicitis. Intraoperatively she was found to have gangrenous appendicitis. She was kept in the hospital for an extra day due to significant leukocytosis and slow return of bowel function. Intraoperatively, she was also found to have a 2 cm umbilical hernia defect, likely related to previous laparoscopic cholecystectomy. This was repaired primarily. At the time of discharge, she was tolerating a diet and pain was adequately controlled with nonnarcotic pain medication. She was deemed ready for discharge home and she will continue antibiotics for three additional postoperative days *Problems/Diagnosis: (1) Umbilical hernia Status: Chronic (2) Acute appendicitis Status: Acute Total Time Spent on D/C: Up to 30 Minutes Counseling Services Smoking & Tobacco Cessation: N/A Problem Qualifiers (1) Acute appendicitis: Qualified Codes: K35.31 - Acute appendicitis with localized peritonitis and gangrene, without perforation MADI WELLS MD Jun 27, 2025 18:04
== END 2025-06-27 18:44 | disposition home or self-care (01) | DRG 399 ==
LOC: ER 07:47 → ED HOLD 12:17 → SUR 3N 16:36
PROVIDERS: ADMIT Nurse Practitioner Family; ATTEND Nurse Practitioner Family
PROC: 0WQF0ZZ Repair Abdominal Wall, Open Approach (ICD-10-PCS; 2025-06-25)
PROC: BW211ZZ Computerized Tomography (CT Scan) of Abdomen and Pelvis using Low Osmolar Contrast (ICD-10-PCS; 2025-06-25)
PROC: 0DTJ4ZZ Resection of Appendix, Percutaneous Endoscopic Approach (ICD-10-PCS; principal; 2025-06-25 14:23)
DX: K35.31 Acute appendicitis with localized peritonitis and gangrene, without perforation (principal); D72.829 Elevated white blood cell count, unspecified; K42.9 Umbilical hernia without obstruction or gangrene; R73.03 Prediabetes; Z90.49 Acquired absence of other specified parts of digestive tract; Z88.1 Allergy status to other antibiotic agents; Z91.040 Latex allergy status
CPT/HCPCS: 96374; 96375; 96376; 99285; Z7506; Z7508; 36415; 71045; 74177; 80053; 81001; 81025; 83036; 83605; 83690; 83735; 84145; 85025; 86885; 86900; 86901; 87040; 87081; 93005; A4215; A4618; A7000; G0378; J0131; J0665; J1100; J1650; J2003; J2250; J2270; J2405; J2543; J2704; J2710; J3010; J3490; J7030; J7040; J7120; Q9967